=== PATIENT | female | born 1995 | race African-American/Black ===

== ENCOUNTER 2017-03-20 20:18 | Emergency (ER) | payer MEDICAID ==
[2017-03-20 20:20] VITALS: BP 117/72; PULSE 82; RESP 16; TEMP 99; O2SAT 100
[2017-03-20] MEDS ORDERED: BECL80AE3 INH (20:25)
[2017-03-20] MEDS ORDERED: CLAR10CA3 PO (20:25)
[2017-03-20] MEDS ORDERED: MONT10TA2 PO (20:25)
[2017-03-20] MEDS ORDERED: ZITH250T PO (21:11)
[2017-03-20] MEDS ORDERED: PRED-503 PO (21:11)
[2017-03-20] MEDS ORDERED: predniSONE 20 MG TAB PO ONE (21:15)
--- NOTE | 2017-03-20 21:19 | PD ---
HPI Chief Complaint: Cold / Flu Symptoms Time Seen by Provider: 21:15 Travel History International Travel<30 days: No Contact w/Intl Traveler<30days: No Traveled to known affect area: No History of Present Illness HPI 21-year-old black female presents to emergency department with a 3-4 day history of runny nose, sinus pressure, ear pain and general malaise. She denies any shortness breath or wheezing. No cough or chest congestion. No nausea vomiting. No abdominal pain or diarrhea. She is accompanied by her mother. She states that she typically uses steroids and if she becomes secondary no she takes antibiotics. She is allergic to penicillin. [facility] Past Medical History Narrative Medical Asthma Asthma: Yes Respiratory: Yes Immunizations Current: Yes Tetanus Vaccination: < 5 Years ?: Not : 1 Miscarriage: 1 Past Surgical History Surgical History: No Previous Surgery Social History Alcohol Use: No Tobacco Use: No Substance Use: No Allergies-Medications (Allergen,Severity, Reaction): Coded Allergies: Penicillin (Verified Allergy, Unknown, 03/20/17) Reported Meds & Prescriptions Reported Meds & Active Scripts Active Zithromax (Azithromycin) 250 Mg Tab 250 Mg PO DIRECTED Take 2 tabs (500 mg) on day 1 then 1 tab daily x 4 days. Deltasone (Prednisone) 20 Mg Tab 20 Mg PO BID Reported Qvar Inh (Beclomethasone Dipropionate) 80 Mcg/Act Aero 2 Puff INH BID Claritin (Loratadine) 10 Mg Cap 10 Mg PO DAILY Singulair (Montelukast Sodium) 10 Mg Tab 10 Mg PO HS Review of Systems Except as stated in HPI: all other systems reviewed are Neg Physical Exam Narrative GENERAL: Well-developed, well-nourished in no acute distress. Nontoxic appearing. HEAD: Normocephalic, atraumatic. EYES: Pupils equal round and reactive. Extraocular motions intact. No scleral icterus. No injection or drainage. ENT: TMs clear without erythema. The external auditory canals clear. Nose: clear . Posterior pharynx is pink and moist. No tonsillar edema or exudate. Uvula midline. Airway patent. NECK: Trachea midline.Supple, nontender, moves head freely. No central bony tenderness or spasm. CARDIOVASCULAR: Regular rate and rhythm without murmurs, gallops, or rubs. RESPIRATORY: Clear to auscultation. Breath sounds equal bilaterally. No wheezes , rales, or rhonchi. GASTROINTESTINAL: Abdomen soft, non-tender, nondistended. No hepato-splenomegaly , or palpable masses. No guarding. EXTREMITIES: No clubbing, cyanosis, or edema. No joint tenderness, effusion, or edema noted. BACK: Nontender without deformity or crepitance. No flank tenderness. Data Data Last Documented VS Vital Signs Date Time Temp Pulse Resp B/P Pulse Ox O2 Delivery O2 Flow Rate FiO2 03/20/17 20:20 99.0 82 16 117/72 100 Room Air Orders Prednisone (Deltasone) (03/20/17 21:15) MDM Medical Decision Making Medical Screen Exam Complete: Yes Emergency Medical Condition: Yes Medical Record Reviewed: Yes Differential Diagnosis MDM: High Differential diagnoses: Pneumonia, bronchitis, URI, asthma, RAD, legionnaire's disease, SARS, ARDS, influenza, bronchiolitis, RSV,PE,CHF Narrative Course The patient's exam is unremarkable. I believe that this is more of an upper respiratory tract infection viral etiology. Patient's given 40 g of prednisone by mouth. She'll be given a prescription for Zithromax which she may hold and take if symptoms worsen. Diagnosis Primary Impression: URI (upper respiratory infection) Qualified Code: J06.9 - Viral upper respiratory tract infection Patient Instructions: General Instructions Additional Instructions: Rest. Increase fluids. Tylenol and Advil. Afrin nasal spray for the next 3-4 days. Prednisone. Fill your prescription for Zithromax if he developed fever, colored sputum or symptoms worsen. Followup with your Dr. in one week. Return to the ER for any problems. Med/Other Pt SpecificInfo: Prescription(s) given Scripts Azithromycin (Zithromax)250 Mg [id number] Mg PO DIRECTED #6 TAB Take 2 tabs (500 mg) on day 1 then 1 tab daily x 4 days. Prov:Ector Pascal MD 03/20/17 Prednisone (Deltasone)20 Mg Tab20 Mg PO BID #10 TAB Prov:Ector Pascal MD 03/20/17 Disposition: 01 DISCHARGE HOME Condition: Stable Jerman Perez Mar 20, 2017 21:19
[2017-05-16] MEDS ORDERED: METR-1 PO (16:29)
== END 2017-03-20 21:35 | disposition home or self-care (01) ==
LOC: NEPD 20:18
DX: J06.9 Acute upper respiratory infection, unspecified (principal)
CPT/HCPCS: 99284; J7512

== ENCOUNTER 2017-03-28 15:14 | Emergency (ER) | payer MEDICAID ==
[~2017-03-28] VITALS: Ht 167.6 cm; Wt 52.0 kg
[~2017-03-28 15:14] MED LIST: BECL80AE3 INH; CLAR10CA3 PO; MONT10TA2 PO; PRED-503 PO; ZITH250T PO
[2017-03-28 15:16] VITALS: BP 127/64; PULSE 77; RESP 18; TEMP 99; O2SAT 98
--- NOTE | 2017-03-28 18:00 | PD ---
HPI Chief Complaint: Cold / Flu Symptoms Time Seen by Provider: 17:59 Travel History International Travel<30 days: No Contact w/Intl Traveler<30days: No Traveled to known affect area: No History of Present Illness HPI 21-year-old female presents emergency department questing antibiotics after being treated for upper respiratory infection on March 20. She continues to have nasal congestion, sinus pressure, cough. She has history of asthma and reports chest tightness and shortness of breath. She did use her albuterol nebulizer and has had good relief of symptoms but still feels little chest tightness. Is requesting a breathing treatment in the ER. Did take a 5 day course of Deltasone which she was prescribed on her [facility] visit. Denies fever, vomiting. Reports wheezing. Allergies to penicillin. Symptoms are mild in severity. Has no other medical complaints. No other modifying factors or associated signs and symptoms. PFSH Past Medical History Asthma: Yes Respiratory: Yes Immunizations Current: Yes ?: LMP: 3 months ago : 1 Miscarriage: 1 Social History Alcohol Use: No Tobacco Use: No Substance Use: No Allergies-Medications (Allergen,Severity, Reaction): Coded Allergies: penicillin G (Unverified Allergy, Unknown, 03/28/17) Reported Meds & Prescriptions Reported Meds & Active Scripts Active Azithromycin 500 Mg Tab 500 Mg PO DAILY Zithromax (Azithromycin) 250 Mg Tab 250 Mg PO DIRECTED Take 2 tabs (500 mg) on day 1 then 1 tab daily x 4 days. Deltasone (Prednisone) 20 Mg Tab 20 Mg PO BID Reported Qvar Inh (Beclomethasone Dipropionate) 80 Mcg/Act Aero 2 Puff INH BID Claritin (Loratadine) 10 Mg Cap 10 Mg PO DAILY Singulair (Montelukast Sodium) 10 Mg Tab 10 Mg PO HS Review of Systems Except as stated in HPI: all other systems reviewed are Neg Physical Exam Narrative GENERAL: Well-nourished, well-developed female patient, in no acute distress; afebrile, nontoxic-appearing SKIN: Warm and dry. No rash. HEAD: Atraumatic. Normocephalic. Frontal and maxillary sinus tenderness on palpation. EYES: Pupils equal and round at 3 mm with brisk reaction. No scleral icterus. No injection or drainage. PERRLA. ENT: Mucosa pink and moist. Oropharynx without erythema, exudates, tonsillar edema.. No uvular edema. No uvular, palatal, or tonsillar deviation. Airway patent. EARS: Bilateral pinnae and external canals appear within normal limits. Bilateral tympanic membranes without erythema, dullness or perforation. NECK: Trachea midline. No lymphadenopathy. CARDIOVASCULAR: Regular rate and rhythm. No murmur appreciated. RESPIRATORY: No accessory muscle use. Clear to auscultation. Breath sounds equal bilaterally. GASTROINTESTINAL: Abdomen soft, non-tender, nondistended. Hepatic and splenic margins not palpable. Bowel sounds are active 4 quadrants. MUSCULOSKELETAL: No obvious deformities. No clubbing. No cyanosis. No edema. NEUROLOGICAL: Awake and alert. Oriented 3. No obvious cranial nerve deficits. Motor grossly within normal limits. Normal speech. Moves all extremities. 5/5 strength to all extremities. PSYCHIATRIC: Appropriate mood and affect; insight and judgment normal. Data Data Last Documented VS Vital Signs Date Time Temp Pulse Resp B/P (MAP) Pulse Ox O2 Delivery O2 Flow Rate FiO2 03/28/17 15:16 99.0 77 18 127/64 (85) 98 Room Air Orders Orders Albuterol-Ipratropium Neb (Duoneb Neb) (03/28/17 18:15) MDM Medical Decision Making Medical Screen Exam Complete: Yes Emergency Medical Condition: Yes Medical Record Reviewed: Yes Differential Diagnosis Sinusitis, URI, bronchitis, asthma exacerbation Narrative Course 21-year-old female with continued upper respiratory infection. She was seen on March 20 and treated with prednisone. I reviewed the medical record: shows she was given a prescription for azithromycin, but the patient says the provider at the time held it for the time being and she only took the prednisone. She is afebrile and nontoxic appearing. Denies fever, vomiting. Patient's lungs are clear and equal throughout. She does have history of asthma. She is requesting a DuoNeb treatment. I'll provide a DuoNeb treatment in the ER as requested by the patient. Azithromycin prescribed for home. Instructed patient to follow up with primary care provider. Patient verbalizes understanding and agreement with treatment plan. Patient is medically cleared and stable for discharge. Discussed reasons to return to the emergency department. Patient agrees with treatment plan. The patients vital signs are stable and the patient is stable for outpatient follow-up and treatment. Patient discharged home, stable and in no acute distress. Diagnosis Primary Impression: URI (upper respiratory infection) Qualified Codes: J06.9 - Acute upper respiratory infection, unspecified Referrals: Primary Care Physician Patient Instructions: General Instructions Departure Forms: Tests/Procedures, Work Release Enter return to work date: Mar 29, 2017 Additional Instructions: Antibiotics as prescribed and complete full course Ibuprofen or Tylenol as instructed and as needed for fever/pain [id number] cough and cold medications as directed and as needed for symptom management Get plenty of sleep/rest Drink plenty of fluids to prevent dehydration; popsicles and Gatorade Use an air humidifier/turn off ceiling fans Follow-up with primary care provider Return immediately to the emergency department with worsening of symptoms Med/Other Pt SpecificInfo: Prescription(s) given Scripts Mometasone Nasal [place] (Nasonex Nasal [place]) 50 Mcg/Act Naspr 2 SPRAY EACH NARE DAILY Y for NASAL CONGESTION, #1 BOTTLE 0 Refills Prov: Dolores Deleon 03/28/17 Azithromycin (Azithromycin) 500 Mg Tab 500 MG PO DAILY for Infection, #5 TAB 0 Refills Prov: Dolores Deleon 03/28/17 Disposition: 01 DISCHARGE HOME Condition: Stable Dolores Deleon Mar 28, 2017 18:00
[2017-03-28] MEDS ORDERED: AZIT500T2 PO (18:05)
[2017-03-28] MEDS ORDERED: RESP: ALBUTEROL 2.5 MG/IPRATROPIUM 0.5 MG NEB (SCH) INH ONE (18:15)
[2017-03-28] MEDS ORDERED: MOME17I EACH NARE (18:16)
[2017-05-16] MEDS ORDERED: METR-1 PO (16:29)
[2017-05-30] MEDS ORDERED: FERRTAB2 PO (10:25)
[2017-05-30] MEDS ORDERED: PREN1CAP20 PO (10:25)
== END 2017-03-28 18:49 | disposition home or self-care (01) ==
LOC: NEPK 15:14
DX: J06.9 Acute upper respiratory infection, unspecified (principal); Z88.0 Allergy status to penicillin
CPT/HCPCS: 99283

== ENCOUNTER 2017-03-30 18:59 | Emergency (ER) | payer MEDICAID ==
[~2017-03-30] VITALS: Ht 167.6 cm; Wt 52.0 kg
[~2017-03-30 18:59] MED LIST changes: +AZIT500T2 PO; +MOME17I EACH NARE
[2017-03-30 19:00] VITALS: BP 110/62; PULSE 80; RESP 20; TEMP 98.6; O2SAT 100
[2017-05-16] MEDS ORDERED: METR-1 PO (16:29)
[2017-05-30] MEDS ORDERED: FERRTAB2 PO (10:25)
[2017-05-30] MEDS ORDERED: PREN1CAP20 PO (10:25)
== END 2017-03-30 21:11 | disposition left against medical advice (07) ==
LOC: NED 18:59
DX: R68.89 Other general symptoms and signs (principal)
CPT/HCPCS: 99281

== ENCOUNTER → 2017-05-17 | Outpatient (CLI) | payer MEDICAID ==
[~2017-05-17] MED LIST changes: -AZIT500T2 PO; +FERRTAB2 PO; +METR-1 PO; -MOME17I EACH NARE; -PRED-503 PO; +PREN1CAP20 PO; -ZITH250T PO
== END ==
LOC: HPND 12:53
PROVIDERS: ATTEND Obstetrics & Gynecology
DX: O09.32 Supervision of pregnancy with insufficient antenatal care, second trimester (principal); O09.292 Supervision of pregnancy with other poor reproductive or obstetric history, second trimester
CPT/HCPCS: 76805; 76817

== ENCOUNTER → 2017-06-01 | Outpatient (CLI) | payer MEDICAID ==
[~2017-06-01] MED LIST changes: +PROG1CAP21 PR
== END ==
LOC: HPND 11:14
PROVIDERS: ATTEND Obstetrics & Gynecology
DX: O35.1XX0 Maternal care for (suspected) chromosomal abnormality in fetus, not applicable or unspecified (principal)
CPT/HCPCS: 76815

== ENCOUNTER → 2017-07-04 | Outpatient (CLI) | payer MEDICAID ==
[~2017-07-04] MED LIST changes: +FERR325T18 PO; -FERRTAB2 PO; -METR-1 PO; -MONT10TA2 PO; -PREN1CAP20 PO
== END ==
LOC: HPND 13:59
PROVIDERS: ATTEND Obstetrics & Gynecology
DX: O35.1XX0 Maternal care for (suspected) chromosomal abnormality in fetus, not applicable or unspecified (principal)
CPT/HCPCS: 76816

== ENCOUNTER → 2017-07-27 | Emergency (ER) | payer MEDICAID ==
[~2017-07-27] MED LIST changes: +ACETAMINOPHEN 500 MG CPLT PO ONE
--- NOTE | 2017-07-27 05:21 | PD ---
HPI Chief Complaint Lower abdominal pain, pelvic pressure Travel History International Travel<30 Days: No Contact w/Intl Traveler<30Days: No Known Affected Area: No History of Present Illness HPI 21-year-old , IUP at 35.0 care complicated by history of a 20 week demise The patient presents complaining of one hour of constant lower back pain that wraps around to the lower abdominal and pelvic region. She reports this pain is dull in nature. There are no aggravating or alleviating factors. There are no attempted treatments. The patient reports good movement. She denies any leaking of fluid or vaginal bleeding. She denies any painful contractions or cramping. She reports associated pelvic pressure. Weeks Gestation: 35 Para: 0 : 2 History Past Medical History Medical History: Denies Significant Hx Obstetric History Obstetric History Past Surgical History Surgical History: No Previous Surgery Family History Family History: Negative Social History Alcohol Use: No Tobacco Use: No Substance Abuse: No Allergies-Medications (Allergen,Severity, Reaction): Coded Allergies: aspirin (Verified Allergy, Unknown, 07/07/17) penicillin G (Verified Allergy, Unknown, 07/07/17) Home Meds Active Scripts Progesterone Micronized (Prometrium) 200 Mg Cap, 200 MG IN HS, #60 CAP 0 Refills Prov:Evelyn Villa MD R1 06/06/17 Reported Medications Ferrous Sulfate (Ferrous Sulfate) 325 Mg (65 Mg Iron) Tablet, 325 MG PO DAILY for Nutritional Supplement, #30 TAB 0 Refills 07/07/17 Beclomethasone Inh (Qvar Inh) 80 Mcg/Act Aero, 2 PUFF INH BID for Asthma Management, #1 INHALER 0 Refills 03/20/17 Loratadine (Claritin) 10 Mg Cap, 10 MG PO DAILY for Allergy Management, CAP 0 Refills 03/20/17 Review of Systems Except as stated in HPI: all other systems reviewed are Neg Physical Exam Narrative GENERAL: Well-nourished, well-developed patient. SKIN: Warm and dry. HEAD: Normocephalic and atraumatic. EYES: No scleral icterus. No injection or drainage. ENT: No nasal drainage noted. Mucous membranes pink. Airway patent. NECK: Supple, trachea midline. No JVD. CARDIOVASCULAR: Regular rate and rhythm without murmurs, gallops, or rubs. RESPIRATORY: Breath sounds equal bilaterally. No accessory muscle use. BREASTS: Deferred ABDOMEN/GI: Abdomen soft, non-tender, bowel sounds present, no rebound, no guarding Gravid GENITOURINARY: External Genitalia: intact and normal in appearance. Grossly normal BUS. Grossly normal rugae. Physiologic discharge. No cervical or vaginal masses noted. SVE 1/thick/high, posterior. BUS glands: [-] FHT's: heart tones with baseline in the 120s with moderate bed bug exterminator variability, good accels, and no decels noted. She has a category 1 heart rate tracing and a reactive NST. EXTREMITIES: No cyanosis or edema. BACK: Nontender without obvious deformity. No CVA tenderness. NEUROLOGICAL: Awake and alert. Motor and sensory grossly within normal limits. Five out of 5 muscle strength in all muscle groups. Normal speech. Psychological: grossly normal memory and affect Musculoskeletal: grossly normal range of motion, gait, and muscle strength. There is some tenderness of the pubic symphysis MDM Plan Assessment/Plan: 1. IUP at 35.0 2. Lower back pain: pain that radiates to front, no evidence of acute etiology. Tylenol given for comfort. No evidence of labor or UTI. Pain precautions, patient to return if doesn't resolve. 3. False labor: strict labor precautions 4. well-being: reassuring testing with reactive NST and category 1 heart rate tracing. 5. Follow up with primary Ob in 2-3 days or sooner if needed 6. UA: Negative Diagnosis Diagnosis: Primary Impression: 35 weeks gestation of Additional Impression: False labor before 37 completed weeks of gestation during in third trimester, antepartum Isamar Michaud MD Jul 27, 2017 05:21
[2017-07-27 06:01] LABS: BILIRUBIN, URINE NEG (NEG); BLOOD, URINE NEG (NEG); GLUCOSE,URINE NEG (NEG); KETONE, URINE TRACE mg/dL (NEG); NITRITE,URINE NEG (NEG); PH, URINE 6.5 (5.0-8.5); URINE COLOR YELLOW (YELLW/STRAW); URINE LEUKOCYTE ESTERASE TRACE (NEG)
[2017-07-27 06:33] LABS: RBC, URINE 0-3 /hpf (0-3); WBC, URINE 0-2 /hpf (0-5)
== END | disposition home or self-care (01) ==
LOC: HOBED 04:37
DX: O47.03 False labor before 37 completed weeks of gestation, third trimester (principal); M54.5 Low back pain; Z3A.35 35 weeks gestation of pregnancy; Z88.6 Allergy status to analgesic agent; Z88.0 Allergy status to penicillin; Z79.899 Other long term (current) drug therapy
CPT/HCPCS: 59025; 81001

== ENCOUNTER → 2017-08-16 | Outpatient (CLI) | payer MEDICAID ==
[~2017-08-16] MED LIST changes: -ACETAMINOPHEN 500 MG CPLT PO ONE
== END ==
LOC: HPND 09:45
PROVIDERS: ATTEND Obstetrics & Gynecology
DX: O36.5930 Maternal care for other known or suspected poor fetal growth, third trimester, not applicable or unspecified (principal)
CPT/HCPCS: 76816

== ENCOUNTER 2017-08-30 12:50 | Inpatient (IN) | payer MEDICAID ==
[2017-08-30] VITALS (13 sets, daily range): BP systolic 102–128; BP diastolic 63–83; PULSE 67–85; RESP 14–16; TEMP 97.7–98.6
[~2017-08-30] VITALS: Ht 167.6 cm; Wt 62.0 kg
[~2017-08-30 12:50] MED LIST changes: -PROG1CAP21 PR
--- NOTE | 2017-08-30 13:45 | PD ---
HPI Chief Complaint rupture of membranes Date Seen: Aug 30, 2017 Travel History International Travel<30 Days: No Contact w/Intl Traveler<30Days: No History of Present Illness HPI Ms. Do is a 21 yo patient of [facility] who presents after concern for rupture of membranes earlier today. Per EMR, patient seen at visit this morning; patient 2 cm dilated and has induction scheduled at ~41 weeks. Patient reports that she noticed leakage of vaginal fluid since 1220pm today; she has since noticed a leakage of fluid. Patient has not felt contractions since onset of leakage but has felt occasional back pain. Patient does not report any vaginal bleeding. Patient reports normal movement. Patient does not report chest pain, shortness of breath, dysuria or urgency, nausea/ vomiting, or other symptoms at this time. Patient reports normal course thus far. Per review of records , patient with sickle cell trait and anemia with Hgb >9. Patient had earlier US 08/16 with absent nasal bone but no other US abnormalities; EFW was 6 lb 7 oz at that time. GBS- Weeks Gestation: 40 Para: 1 : 2 History Past Medical History Narrative Medical Sickle cell trait Asthma- has not needed to use inhaler in years Obstetric History Obstetric History stillbirth at 20 weeks current gestation with absent nasal bone on US but no other US abnormalities Past Surgical History Surgical History: No Previous Surgery Family History Family History: Negative Social History Alcohol Use: No Tobacco Use: No Substance Abuse: No Allergies-Medications (Allergen,Severity, Reaction): Coded Allergies: aspirin (Verified Allergy, Unknown, 08/30/17) penicillin G (Verified Allergy, Unknown, 08/30/17) Home Meds Reported Medications Ferrous Sulfate (Ferrous Sulfate) 325 Mg (65 Mg Iron) Tablet, 325 MG PO DAILY for Nutritional Supplement, #30 TAB 0 Refills 07/07/17 Beclomethasone Inh (Qvar Inh) 80 Mcg/Act Aero, 2 PUFF INH BID for Asthma Management, #1 INHALER 0 Refills 03/20/17 Loratadine (Claritin) 10 Mg Cap, 10 MG PO DAILY for Allergy Management, CAP 0 Refills 03/20/17 Discontinued Scripts Progesterone Micronized (Prometrium) 200 Mg Cap, 200 MG [place] HS, #60 CAP 0 Refills Prov:Evelyn Villa MD R1 06/06/17 Review of Systems General / Constitutional: No: Fever Eyes: No: Blurred Vision HENT: Headaches (mild, intermittent) Cardiovascular: No: Chest Pain or Discomfort Respiratory: No: Short of Breath Gastrointestinal: No: Nausea, Vomiting, Abdominal Pain Genitourinary: No: Urgency, Frequency Musculoskeletal: No: Weakness Skin: No Rash, No Itching Psychiatric: No: Anxiety, Depression Physical Exam BP 128/73 HR 81 RR 20 T 98.6 Narrative GENERAL: Well-nourished, well-developed patient. SKIN: Warm and dry. HEAD: Normocephalic and atraumatic. EYES: No scleral icterus. No injection or drainage. ENT: No nasal drainage noted. Mucous membranes pink. Airway patent. NECK: No appreciated thyromegaly or lymphadenopathy CARDIOVASCULAR: Regular rate and rhythm without murmurs. Normal perfusion RESPIRATORY: CTAB; normal rate ABDOMEN/GI: Abdomen soft, non-tender, bowel sounds present, no rebound, no guarding Gravid EXTREMITIES: No cyanosis or edema. BACK: Nontender without obvious deformity. No CVA tenderness. NEUROLOGICAL: Awake and alert. Motor and sensory function grossly within normal limits. GENITOURINARY: External Genitalia: intact and normal in appearance Cervix: Dilatation: 4cm Effacement: 60% Station: -3 Presentation: V Membranes: Ruptured grossly Uterine Contractions: irregular FHT's: Category: 1 Baseline: 130 Reactive: Y Variability: Mod Decels: None Data Data Vital Signs Reviewed: Yes Orders Orders Ob (2e) Additional Admit Info (08/30/17 13:13) Group B Strep: Negative MDM Medical Record Reviewed: Yes Narrative Course / MDM Ms. Do is a 21 yo patient of [facility] who presents after concern for rupture of membranes earlier today. -Cat 1 rhythm -Cervix 4/60%/-3 -Contractions- intermittent on EFM -Gross ROM -GBS- Plan: -Will plan to admit for labor -Will start LR and give liquid diet -Will check CBC, hold clot, UA -Discussed with mother potential options for need for augmentation of labor/ other methods of delivery (such as CS) Anemia -Will plan to continue ferrous sulfate post- Sickle cell trait w/ paternal sickle cell trait -Discussed potential risk of sickle cell anemia; will plan to notify pediatric team Calos Chinchilla MD, R3 Aug 30, 2017 13:45
[2017-08-30] MEDS ORDERED: OXYTOCIN 30 UNITS-500ML PREMIX 500 ML IV ONE (14:00)
[2017-08-30] MEDS ORDERED: LACTATED RINGER'S 1000 ML INJ 1,000 ML IV PRN (14:00)
[2017-08-30] MEDS ORDERED: LIDOCAINE HCL 1% 50 ML VIAL I-DERMAL PRN (14:00)
[2017-08-30] MEDS ORDERED: MINERAL OIL 10 ML VIAL TOPICAL PRN (14:00)
[2017-08-30] MEDS ORDERED: ONDANSETRON HCL 4 MG/2 ML VIAL IV PUSH PRN (14:00)
[2017-08-30] MEDS ORDERED: CITRIC ACID-SODIUM CITRATE LIQ 30 ML UDC PO SCH (14:00)
[2017-08-30] MEDS ORDERED: SODIUM CHLORID 0.9% 500 ML INJ 500 ML IV PRN (14:00)
[2017-08-30] MEDS ORDERED: LIDOCAINE HCL 1% 50 ML VIAL INFIL PRN (14:00)
[2017-08-30] MEDS ORDERED: SODIUM CHLOR 0.9% 1000 ML INJ 1,000 ML IV PRN (14:05)
[2017-08-30 14:31] LABS: BILIRUBIN, URINE NEG (NEG); BLOOD, URINE TRACE (NEG); GLUCOSE,URINE NEG (NEG); KETONE, URINE NEG (NEG); NITRITE,URINE NEG (NEG); PH, URINE 6.5 (5.0-8.5); SQUAMOUS EPITHELIAL CELL URINE <1 /hpf (0-5); URINE COLOR LIGHT-YELLOW (YELLW/STRAW); URINE LEUKOCYTE ESTERASE SMALL (NEG)
--- NOTE | 2017-08-30 15:00 | HHI.HP ---
History & Physical H&P Patient Name: Kayli Do Unit Number: [id number] Date of : 1995 Patient Status: Admitted Inpatient Attending Doctor: Isamar Michaud MD HPI HPI Chief Complaint rupture of membranes Date Seen: Aug 30, 2017 Travel History International Travel<30 Days: No Contact w/Intl Traveler<30Days: No History of Present Illness HPI Ms. Do is a 21 yo patient of [facility] who presents after concern for rupture of membranes earlier today. Per EMR, patient seen at visit this morning; patient 2 cm dilated and has induction scheduled at ~41 weeks. Patient reports that she noticed leakage of vaginal fluid since 1220pm today; she has since noticed a leakage of fluid. Patient has not felt contractions since onset of leakage but has felt occasional back pain. Patient does not report any vaginal bleeding. Patient reports normal movement. Patient does not report chest pain, shortness of breath, dysuria or urgency, nausea/ vomiting, or other symptoms at this time. Patient reports normal course thus far. Per review of records , patient with sickle cell trait and anemia with Hgb >9. Patient had earlier US 08/16 with absent nasal bone but no other US abnormalities; EFW was 6 lb 7 oz at that time. GBS- Weeks Gestation: 40 Para: 1 : 2 History (Limited) History Past Medical History Narrative Medical Sickle cell trait Asthma- has not needed to use inhaler in years Obstetric History Obstetric History stillbirth at 20 weeks current gestation with absent nasal bone on US but no other US abnormalities Past Surgical History Surgical History: No Previous Surgery Family History Family History: Negative Social History Alcohol Use: No Tobacco Use: No Substance Abuse: No Allergies-Medications Allergies-Medications (Allergen,Severity, Reaction): Coded Allergies: aspirin (Verified Allergy, Unknown, 08/30/17) penicillin G (Verified Allergy, Unknown, 08/30/17) Home Meds Reported Medications Ferrous Sulfate (Ferrous Sulfate) 325 Mg (65 Mg Iron) Tablet, 325 MG PO DAILY for Nutritional Supplement, #30 TAB 0 Refills 07/07/17 Beclomethasone Inh (Qvar Inh) 80 Mcg/Act Aero, 2 PUFF INH BID for Asthma Management, #1 INHALER 0 Refills 03/20/17 Loratadine (Claritin) 10 Mg Cap, 10 MG PO DAILY for Allergy Management, CAP 0 Refills 03/20/17 Discontinued Scripts Progesterone Micronized (Prometrium) 200 Mg Cap, 200 MG [place] HS, #60 CAP 0 Refills Prov:Evelyn Villa MD R1 06/06/17 ROS Review of Systems General / Constitutional: No: Fever Eyes: No: Blurred Vision HENT: Headaches (mild, intermittent) Cardiovascular: No: Chest Pain or Discomfort Respiratory: No: Short of Breath Gastrointestinal: No: Nausea, Vomiting, Abdominal Pain Genitourinary: No: Urgency, Frequency Musculoskeletal: No: Weakness Skin: No Rash, No Itching Psychiatric: No: Anxiety, Depression Physical Exam Physical Exam BP 128/73 HR 81 RR 20 T 98.6 Narrative GENERAL: Well-nourished, well-developed patient. SKIN: Warm and dry. HEAD: Normocephalic and atraumatic. EYES: No scleral icterus. No injection or drainage. ENT: No nasal drainage noted. Mucous membranes pink. Airway patent. NECK: No appreciated thyromegaly or lymphadenopathy CARDIOVASCULAR: Regular rate and rhythm without murmurs. Normal perfusion RESPIRATORY: CTAB; normal rate ABDOMEN/GI: Abdomen soft, non-tender, bowel sounds present, no rebound, no guarding Gravid EXTREMITIES: No cyanosis or edema. BACK: Nontender without obvious deformity. No CVA tenderness. NEUROLOGICAL: Awake and alert. Motor and sensory function grossly within normal limits. GENITOURINARY: External Genitalia: intact and normal in appearance Cervix: Dilatation: 4cm Effacement: 60% Station: -3 Presentation: V Membranes: Ruptured grossly Uterine Contractions: irregular FHT's: Category: 1 Baseline: 130 Reactive: Y Variability: Mod Decels: None Data Data Data Vital Signs Reviewed: Yes Orders Orders Ob (2e) Additional Admit Info (08/30/17 13:13) Group B Strep: Negative MDM MDM Medical Record Reviewed: Yes Narrative Course / MDM Ms. Do is a 21 yo patient of [facility] who presents after concern for rupture of membranes earlier today. -Cat 1 rhythm -Cervix 4/60%/-3 -Contractions- intermittent on EFM -Gross ROM -GBS- Plan: -Will plan to admit for labor -Will start LR and give liquid diet -Will check CBC, hold clot, UA -Discussed with mother potential options for need for augmentation of labor/ other methods of delivery (such as CS) Anemia -Will plan to continue ferrous sulfate post- Sickle cell trait w/ paternal sickle cell trait -Discussed potential risk of sickle cell anemia; will plan to notify pediatric team Calos Chinchilla MD, R3 Aug 30, 2017 14:59
[2017-08-30] MEDS: LACTATED RINGER'S 1000 ML INJ 1,000 ML IV SCH (15:25)
[2017-08-30 16:06] LABS: BASOPHIL % 0.5 % (0.0-2.0); EOSINOPHIL # 0.1 TH/MM3 (0-0.4); EOSINOPHIL % 0.7 % (0.0-4.0); HEMATOCRIT 33.2 % (35.0-46.0); HEMOGLOBIN 11.4 GM/DL (11.6-15.3); LYMPH % 13.7 % (9.0-44.0); LYMPHOCYTE # 1.2 TH/MM3 (1.0-4.8); MEAN CELL VOLUME 91.3 FL (80.0-100.0); MEAN CORPUSCULAR HEMOGLOBIN 31.2 PG (27.0-34.0); MEAN CORPUSCULAR HGB CONC 34.2 % (32.0-36.0); MEAN PLATELET VOLUME 9.2 FL (7.0-11.0); MONOCYTE # 0.7 TH/MM3 (0-0.9); NEUT % 77.1 % (16.0-70.0); PLATELET COUNT 248 TH/MM3 (150-450); RED BLOOD COUNT 3.64 MIL/MM3 (4.00-5.30); RED CELL DISTRIBUTION WIDTH 14.5 % (11.6-17.2)
[2017-08-30] MEDS ORDERED: OXYTOCIN 30 UNITS-500ML PREMIX 500 ML IV PRN (17:15)
--- NOTE | 2017-08-30 19:28 | HHI.PR ---
Subjective Remarks [facility] attending S: Patient resting comfortable, no complaints O: VSS AF FHT: 130s, moderate LTV, good accels, no decels [place]: q 2-3 SVE: 3/thick/-3, posterior A/P: 1. IUP at 40.0 2. PROM: on oxytocin at this time, will reassess and consider additional ripening if no cervical change with oxytocin. Discussed risks of , risks/ indications of delivery including but not limited to pain, infection, bleeding, injury to other organs like the bladder/bowel/nerves/vessels, injury to the baby, hysterectomy, need for blood transfusion, repeat operation, wound infection/breakdown, and other possible complications. All the patient's questions were answered and consent had previously been signed. 3. GBS negative 4. well-being: Reassuring testing with reactive NST and category 1 heart rate tracing, will continue monitoring Objective Vital Signs Date Time Temp Pulse Resp B/P (MAP) Pulse Ox O2 Delivery O2 Flow Rate FiO2 08/30/17 19:15 98.3 15 08/30/17 18:30 80 124/72 (89) 08/30/17 18:23 68 128/66 (86) 08/30/17 17:35 77 125/77 (93) 08/30/17 15:53 97.7 16 08/30/17 15:46 85 121/83 (96) Result Diagram: 08/30/17 1521 Isamar Michaud MD Aug 30, 2017 19:28
[2017-08-31] VITALS (48 sets, daily range): BP systolic 95–133; BP diastolic 53–101; PULSE 65–99; RESP 12–18; TEMP 97.9–98.5; O2SAT 99
--- NOTE | 2017-08-31 00:01 | HHI.PR ---
Subjective Remarks [facility] attending S: Patient up in room, comfortable, does not feel any ctx, no complaints O: VSS AF FHT: 140s, moderate LTV, good accels, no decels [place]: q2-3 SVE: 3/thick/-3, posterior A/P: 1. IUP at 40.0 2. PROM: PROM about 12:30pm, has been on oxtocin, will d/c for now and perform additional cervical ripening with cytotec and then restart oxytocin. Discussed with patient who is in agreement with plan. 3. GBS negative 4. well-being: Reassuring testing with reactive NST and category 1 heart rate tracing, will continue monitoring Objective Vital Signs Date Time Temp Pulse Resp B/P (MAP) Pulse Ox O2 Delivery O2 Flow Rate FiO2 08/30/17 22:01 67 120/63 (82) 08/30/17 20:00 83 113/67 (82) 08/30/17 19:30 73 102/65 (77) 08/30/17 19:15 98.3 15 08/30/17 19:00 70 114/66 (82) 08/30/17 18:30 80 124/72 (89) 08/30/17 18:23 68 128/66 (86) 08/30/17 17:35 77 125/77 (93) 08/30/17 15:53 97.7 16 08/30/17 15:46 85 121/83 (96) Result Diagram: 08/30/17 1521 Isamar Michaud MD Aug 31, 2017 00:01
[2017-08-31] MEDS: LACTATED RINGER'S 1000 ML INJ 1,000 ML IV SCH ×3 (01:35→06:25)
[2017-08-31] MEDS ORDERED: MISOPROSTOL 25 MCG SUPP VAGINAL ONE (04:00)
[2017-08-31] MEDS ORDERED: LACTATED RINGER'S 1000 ML INJ 1,000 ML IV SCH (04:00)
[2017-08-31] MEDS ORDERED: NS 1000 ML OTHER PRN (04:00)
--- NOTE | 2017-08-31 08:16 | HHI.PR ---
Subjective Remarks [facility] attending S: Patient resting comfortable, no complaints, is starting to feel contractions O: VSS AF FHT: 130s, moderate LTV, good accels, no decels [place]: q 2-3 SVE: 4/50/-2 A/P: 1. IUP at 40.1 2. PROM: received oxytocin, without significant cervical change; s/p cytotec x1 with cervical change and now feeling ctx. Will restart oxytocin at this time. PROM at 1230pm. 3. GBS negative 4. well-being: Reassuring testing with reactive NST and category 1 heart rate tracing, will continue monitoring Objective Vital Signs Date Time Temp Pulse Resp B/P (MAP) Pulse Ox O2 Delivery O2 Flow Rate FiO2 08/31/17 07:00 84 95/57 (70) 08/31/17 06:43 98.5 08/31/17 06:43 14 08/31/17 06:32 74 99/53 (68) 08/31/17 04:13 98.0 12 08/31/17 04:12 85 102/60 (74) 08/31/17 02:23 98.5 14 08/31/17 02:20 74 114/68 (83) 08/30/17 23:59 98.6 14 08/30/17 23:57 81 120/79 (93) 08/30/17 22:01 67 120/63 (82) 08/30/17 21:00 98.3 08/30/17 20:00 83 113/67 (82) 08/30/17 19:30 73 102/65 (77) 08/30/17 19:15 98.3 15 08/30/17 19:00 70 114/66 (82) 08/30/17 18:30 80 124/72 (89) 08/30/17 18:23 68 128/66 (86) 08/30/17 17:35 77 125/77 (93) 08/30/17 15:53 97.7 16 08/30/17 15:46 85 121/83 (96) Result Diagram: 08/30/17 1521 Isamar Michaud MD Aug 31, 2017 08:16
[2017-08-31] MEDS ORDERED: fentaNYL 2MCG-BUPIV 0.125% INJ 100 ML ONE (09:11)
[2017-08-31] MEDS ORDERED: fentaNYL 2MCG-BUPIV 0.125% 100 ML EPIDURAL SCH (11:30)
[2017-08-31] MEDS ORDERED: NO SYSTEM NARCOTICS PRN (11:30)
[2017-08-31] MEDS ORDERED: ePHEDrine/NS 25 MG/5 ML SYRINGE IV PUSH PRN (11:30)
[2017-08-31] MEDS ORDERED: DO NOT ADMINISTER ANTICOAGULANTS PRN (11:30)
[2017-08-31] MEDS ORDERED: ACETAMINOPHEN 325 MG TAB PO PRN (15:30)
[2017-08-31] MEDS ORDERED: WITCH HAZEL 50%/GLYCERIN 12.5% 40 PAD JAR TOPICAL PRN (15:30)
[2017-08-31] MEDS ORDERED: SODIUM CHLORIDE 0.9% FLUSH 10 ML FLUSH IV FLUSH PRN (15:30)
[2017-08-31] MEDS ORDERED: DOCUSATE SODIUM 50 MG/SENNA 8.6 MG TAB PO PRN (15:30)
[2017-08-31] MEDS ORDERED: ZOLPIDEM TARTRATE 5 MG TAB PO PRN (15:30)
[2017-08-31] MEDS ORDERED: BENZOCAINE 20% TOPICAL SPRAY 60 ML CAN TOPICAL PRN (15:30)
[2017-08-31] MEDS ORDERED: ONDANSETRON ODT 4 MG TAB PO PRN (15:30)
[2017-08-31] MEDS ORDERED: OXYTOCIN 30 UNITS-500ML PREMIX 500 ML IV SCH (15:30)
[2017-08-31] MEDS ORDERED: ALUMINUM/MAGNESIUM/SIMETH 30 ML CUP PO PRN (15:30)
--- NOTE | 2017-08-31 15:38 | PD.OB.DELI ---
Weeks gestation: 40 Pt started active labor?: Yes Medical induction of labor?: No (Patient's labor was not induced but labor was augmented. ) Artificial rupture of membrane: No Anesthesia: Epidural Episiotomy: None Vaginal Delivery: Normal Presentation: Vertex Nuchal Cord: None Delayed cord clamping (45 sec): Yes : Female Delivery date: Aug 31, 2017 Delivery time: 14:56 Weight: Not yet weighed Placenta: Spontaneous delivery, Intact, 3 vessel cord Laceration: No lacerations (Small abrasion, no repair necessary ) Estimated blood loss: Minimal (Taryn Whitley MD R1) Collaborating Comments Delivery was directly supervised with uncomplicated over intact perineum. Small abrasion noted without repair. EBL <500cc (Brisa Prescott MD) Taryn Whitley MD R1 Aug 31, 2017 15:38 Brisa Prescott MD Aug 31, 2017 23:24
[2017-08-31] MEDS ORDERED: DIPHTH/TETANUS/ACEL PERTUSSIS (BOOSTER) 0.5 ML VIAL/PFS IM ONE (16:00)
[2017-08-31] MEDS ORDERED: MEASLES, MUMPS, RUBELLA VACCINE 0.5 ML VIAL SQ ONE (16:00)
[2017-08-31] MEDS ORDERED: SODIUM CHLORIDE 0.9% FLUSH 10 ML FLUSH IV FLUSH SCH (21:00)
[2017-08-31] MEDS: IBUPROFEN 800 MG TAB PO PRN (21:18)
[2017-09-01] MEDS: IBUPROFEN 800 MG TAB PO PRN ×3 (06:07→22:12)
[2017-09-01 08:00] VITALS: BP 95/65; PULSE 68; RESP 18; TEMP 97.8
--- NOTE | 2017-09-01 09:09 | HHI.OB ---
Subjective Post Day: 1 Remarks Patient is a 21-year-old delivered at 40 weeks and 1 day. Patient is day 1 after spontaneous vaginal delivery. Patient's pain is well- controlled. Patient reports minimal bleeding. Patient reports eating and drinking without any nausea or vomiting. Patient has passed gas but has not had a bowel movement. Patient denies chest pain and shortness of breath. Patient has been ambulating; she denies lower extremity pain. Patient has decided to breast-feed. Objective Vitals/I&O Vital Signs Date Time Temp Pulse Resp B/P (MAP) Pulse Ox O2 Delivery O2 Flow Rate FiO2 08/31/17 20:50 98.2 78 18 126/82 (97) 99 08/31/17 16:20 18 08/31/17 16:15 81 123/73 (90) 08/31/17 16:05 18 08/31/17 16:01 84 122/75 (91) 08/31/17 15:50 18 08/31/17 15:45 69 122/81 (95) 08/31/17 15:35 18 08/31/17 15:30 74 122/71 (88) 08/31/17 15:15 99 122/81 (95) 08/31/17 15:12 97 131/89 (103) 08/31/17 15:12 18 08/31/17 13:45 97.9 18 08/31/17 13:30 93 119/76 (90) 08/31/17 13:00 80 124/68 (86) 08/31/17 12:44 16 08/31/17 12:30 83 106/63 (77) 08/31/17 12:00 65 116/71 (86) 08/31/17 11:30 71 107/56 (73) 08/31/17 11:14 12 08/31/17 11:06 98.0 08/31/17 11:04 18 08/31/17 11:00 65 119/77 (91) 08/31/17 10:40 93 106/80 (89) 08/31/17 10:35 80 118/81 (93) 08/31/17 10:30 67 123/77 (92) 08/31/17 10:26 83 121/73 (89) 08/31/17 10:20 74 129/82 (98) 08/31/17 10:15 69 122/83 (96) 08/31/17 10:10 71 133/78 (96) 08/31/17 10:05 69 130/92 (105) 08/31/17 10:00 84 08/31/17 10:00 82 121/87 (98) 08/31/17 09:58 87 123/101 (108) 08/31/17 09:57 83 119/80 (93) 08/31/17 09:55 77 08/31/17 09:50 85 08/31/17 09:45 83 08/31/17 09:43 81 118/64 (82) 08/31/17 09:40 80 08/31/17 09:35 87 Objective Remarks GENERAL: Well-nourished, well-developed patient. CARDIOVASCULAR: Regular rate and rhythm without murmurs, gallops, or rubs. RESPIRATORY: Breath sounds equal bilaterally. No accessory muscle use. ABDOMEN/GI: Abdomen soft, minimally tender. Fundus: Firm, minimally tender at umbilicus. GENITOURINARY: Light to moderate bleeding. EXTREMITIES: No cyanosis or edema, non-tender, without signs of DVT. Medications and IVs Current Medications Medications (Trade) Dose Ordered Sig/Darling Route Start Time Stop Time Status Last Admin (NS Flush) 2 ml BID IV FLUSH 08/31/17 21:00 (NS Flush) 2 ml UNSCH PRN IV FLUSH 08/31/17 15:30 (Tylenol) 650 mg Q4H PRN PO 08/31/17 15:30 (Motrin) 800 mg Q8H PRN PO 08/31/17 15:30 09/01/17 06:07 (Americaine 20% Top Spr) 1 spray Q4H PRN TOPICAL 08/31/17 15:30 (Tucks Pads) 1 applic QID PRN TOPICAL 08/31/17 15:30 08/31/17 21:18 (Sonja-Colace) 2 tab Q12H PRN PO 08/31/17 15:30 (Ambien) 5 mg HS PRN PO 08/31/17 15:30 (Mag-Al Plus Susp Liq) 15 ml Q8H PRN PO 08/31/17 15:30 (Zofran Odt) 4 mg Q6H PRN PO 08/31/17 15:30 (Flu (Quadrivalent) Vaccine Inj) 0.5 ml ONCE ONCE IM 09/02/17 10:00 09/02/17 10:01 Assessment/Plan Assessment and Plan Patient is a 21-year-old delivered at 40 weeks and 1 day. Patient is day 1 after spontaneous vaginal delivery. * Continue routine care. * Motrin and Percocet when necessary for pain. * Encourage OOB. * Pelvic rest for 6 weeks will need follow-up appointment at that time. * Anticipate discharge tomorrow. Discuss with OB hospitalist. Taryn Whitley MD R1 Sep 01, 2017 09:09
[2017-09-01 19:34] VITALS: BP 112/70; PULSE 72; RESP 13; TEMP 98.1
[2017-09-02 08:00] VITALS: BP 118/66; PULSE 79; RESP 18; TEMP 98.1; O2SAT 98
--- NOTE | 2017-09-02 09:37 | HHI.OB ---
Subjective Post Day: 2 Remarks Patient is a 21-year-old delivered at 40 weeks and 1 day. Patient is day two after spontaneous vaginal delivery. Patient's pain is well- controlled. Patient reports minimal bleeding. Patient reports eating and drinking without any nausea or vomiting. Patient has passed gas but has not had a bowel movement. Patient denies chest pain and shortness of breath. Patient has been ambulating; she denies lower extremity pain. Patient has decided to breast-feed. Objective Vitals/I&O Vital Signs Date Time Temp Pulse Resp B/P (MAP) Pulse Ox O2 Delivery O2 Flow Rate FiO2 09/01/17 19:34 112/70 (84) 09/01/17 19:34 98.1 72 13 Objective Remarks GENERAL: Well-nourished, well-developed patient. CARDIOVASCULAR: Regular rate and rhythm without murmurs, gallops, or rubs. RESPIRATORY: Breath sounds equal bilaterally. No accessory muscle use. ABDOMEN/GI: Abdomen soft, minimally tender. Fundus: Firm, minimally tender at umbilicus. GENITOURINARY: Light to moderate bleeding. EXTREMITIES: No cyanosis or edema, non-tender, without signs of DVT. Medications and IVs Current Medications Medications (Trade) Dose Ordered Sig/Darling Route Start Time Stop Time Status Last Admin (NS Flush) 2 ml BID IV FLUSH 08/31/17 21:00 (NS Flush) 2 ml UNSCH PRN IV FLUSH 08/31/17 15:30 (Tylenol) 650 mg Q4H PRN PO 08/31/17 15:30 (Motrin) 800 mg Q8H PRN PO 08/31/17 15:30 09/01/17 22:12 (Americaine 20% Top Spr) 1 spray Q4H PRN TOPICAL 08/31/17 15:30 (Tucks Pads) 1 applic QID PRN TOPICAL 08/31/17 15:30 08/31/17 21:18 (Sonja-Colace) 2 tab Q12H PRN PO 08/31/17 15:30 (Ambien) 5 mg HS PRN PO 08/31/17 15:30 (Mag-Al Plus Susp Liq) 15 ml Q8H PRN PO 08/31/17 15:30 (Zofran Odt) 4 mg Q6H PRN PO 08/31/17 15:30 (Flu (Quadrivalent) Vaccine Inj) 0.5 ml ONCE ONCE IM 09/02/17 10:00 09/02/17 10:01 09/01/17 18:40 Assessment/Plan Assessment and Plan Patient is a 21-year-old delivered at 40 weeks and 1 day. Patient is day two after spontaneous vaginal delivery. * Continue routine care. * Motrin and Percocet when necessary for pain. * Encourage OOB. * Pelvic rest for 6 weeks will need follow-up appointment at that time. * Anticipate discharge today. Discuss with OB hospitalist. Taryn Whitley MD R1 Sep 02, 2017 09:37
[2017-09-02] MEDS ORDERED: PRENTAB7 PO (09:41)
[2017-09-02] MEDS ORDERED: IBUP1TAB7 PO (09:41)
--- NOTE | 2017-09-02 09:42 | HHI.DCPOC ---
Discharge Care Plan Diagnosis: (1) Vaginal delivery Your Health Problems Are: Vaginal delivery Report Symptoms to Your Doctor -Temperature above 100.5 degrees -Redness, of incision or excessive or foul smelling drainage -Unusual pain or calf pain -Increased vaginal bleeding -Painful or difficulty urinating -Feelings of extreme sadness or anxiety after 2 weeks Goals to Promote Your Health * To prevent worsening of your condition and complications * To maintain your health at the optimal level Directions to Meet Your Goals Take your medications as prescribed Follow your dietary instruction Follow activity as directed Ensure plenty of rest for recovery Drink fluids for hydration Keep your appointments as scheduled Take your immunizations and boosters as scheduled If your symptoms worsen call your PCP, if no PCP go to Urgent Care Center or Emergency Room Smoking is Dangerous to Your Health. Avoid second hand smoke Call the 24-hour crisis hotline for domestic abuse at Taryn Whitley MD R1 Sep 02, 2017 09:42
[2017-09-02] MEDS: IBUPROFEN 800 MG TAB PO PRN (09:52)
[2017-09-02] MEDS ORDERED: INFLUENZA VIRUS VACCINE (QUADRIVALENT) 0.5 ML SYR IM ONE (10:00)
== END 2017-09-02 17:27 | disposition home or self-care (01) | DRG 775 ==
LOC: HOBED 12:50 → H2EB 13:21 → H1EA 08-31 19:36
PROVIDERS: ADMIT Obstetrics & Gynecology; ATTEND Obstetrics & Gynecology
PROC: 10E0XZZ Delivery of Products of Conception, External Approach (ICD-10-PCS; principal; 2017-08-31)
PROC: 00HU33Z Insertion of Infusion Device into Spinal Canal, Percutaneous Approach (ICD-10-PCS; 2017-08-31)
PROC: 3E0R3BZ Introduction of Anesthetic Agent into Spinal Canal, Percutaneous Approach (ICD-10-PCS; 2017-08-31)
DX: O42.92 Full-term premature rupture of membranes, unspecified as to length of time between rupture and onset of labor (principal); D57.3 Sickle-cell trait; O71.89 Other specified obstetric trauma; O99.02 Anemia complicating childbirth; J45.909 Unspecified asthma, uncomplicated; O99.52 Diseases of the respiratory system complicating childbirth; Z23 Encounter for immunization; Z3A.40 40 weeks gestation of pregnancy; Z37.0 Single live birth
CPT/HCPCS: 59025; 80307; 81001; 85025; 86900; 86901; 90686; 90715; J2590; J7120; Q2038